=== PATIENT | male | born 1945 | race Caucasian/White ===

== ENCOUNTER 2018-01-26 00:10 | Emergency (ER) | payer MEDICARE, BC ==
[2018-01-26] MEDS ORDERED: NORMAL SALINE 1000 ML 1,000 ML IV ONE (00:53)
--- NOTE | 2018-01-26 00:55 | ER Document Report ---
ED General - General Chief Complaint: Nausea Stated Complaint: NAUSEA Time Seen by Provider: 01/26/18 00:44 Notes: Patient is a 72-year-old male that comes to the emergency department for chief complaint of weakness and nausea. He states he has been working outside for the past several days, he also had beer and then shots of alcohol over the past 24 hours, he states that he started to feel really weak and nauseated. He denies vomiting, chest pain, passing out. He denies fever or chills. Past medical history of hypertension, hyperlipidemia, dental surgery, denies any other medical history otherwise. Family at bedside. - Related Data Allergies/Adverse Reactions: No Known Allergies Allergy (Unverified 01/26/18 00:29) Past Medical History - General Information source: Patient - Social History Smoking Status: Never Smoker Frequency of alcohol use: Heavy Drug Abuse: None Lives with: Family Family History: Reviewed & Not Pertinent Patient has suicidal ideation: No Patient has homicidal ideation: No - Past Medical History Cardiac Medical History: Reports: Hx Hypertension Renal/ Medical History: Denies: Hx Peritoneal Dialysis Review of Systems - Review of Systems Constitutional: See HPI EENT: No symptoms reported Cardiovascular: See HPI Respiratory: No symptoms reported Gastrointestinal: See HPI Genitourinary: No symptoms reported Male Genitourinary: No symptoms reported Musculoskeletal: No symptoms reported Skin: No symptoms reported Hematologic/Lymphatic: No symptoms reported Neurological/Psychological: No symptoms reported Physical Exam - Vital signs Vitals: Temp Pulse Resp BP Pulse Ox 97.7 F 71 21 H 154/86 H 98 01/26/18 00:26 01/26/18 00:01/26/18 00:01/26/18 00:01/26/18 00:26 - Notes Notes: GENERAL: Patient slightly pale, slightly unwell appearing, no distress. HEAD: Normocephalic, atraumatic. EYES: Pupils equal, round, and reactive to light. Extraocular movements intact. ENT: Oral mucosa dry, oropharyngeal exam otherwise unremarkable. NECK: Full range of motion. Supple. Trachea midline. LUNGS: Clear to auscultation bilaterally, no wheezes, rales, or rhonchi. No respiratory distress. HEART: Regular rate and rhythm. No murmur ABDOMEN: Soft, non-tender. Non-distended. Bowel sounds present in all 4 quadrants. EXTREMITIES: Moves all 4 extremities spontaneously. No edema, normal radial and dorsalis pedis pulses bilaterally. No cyanosis. BACK: no cervical, thoracic, lumbar midline tenderness. No saddle anesthesia, normal distal neurovascular exam. NEUROLOGICAL: Alert and oriented x3. Normal speech. [cranial nerves II through XII grossly intact]. PSYCH: Normal affect, normal mood. SKIN:Pale and dry. Course - Re-evaluation Re-evalutation: Patient slightly pale and unwell appearing on initial evaluation, provided with IV fluids, provided with Carafate, Pepcid, Zofran. He is not tachycardic, he is alert and oriented, his examination is unremarkable otherwise. He is not hypotensive or febrile. CBC unremarkable, chemistry shows hyponatremia at 128, mild hypokalemia, CK is elevated in the 800s, workup otherwise unremarkable. Discussed with patient, on reevaluation he is sitting up, as normal color, states he feels excellent. No current symptoms. Discussed results, decision was made to cycle his chemistry and CK, this was performed, sodium improved slightly, CK is downtrending. Does not appear to be developing rhabdo. Patient requesting to leave. He states he has primary care follow-up and he will be able to see them within the next few days. Discussed return precautions , alcohol cessation, patient states understanding and agreement. He states that he does not get withdrawal symptoms, he states he has no difficulty with holding from alcohol and understands the importance of this. - Vital Signs Vital signs: Temp Pulse Resp BP Pulse Ox 97.9 F 71 18 136/86 H 99 01/26/18 05:03 01/26/18 00:26 01/26/18 05:03 01/26/18 05:03 01/26/18 05:03 - Laboratory Result Diagrams: 01/26/18 01:23 01/26/18 03:55 Laboratory results interpreted by me: 01/26/18 01/26/18 01/26/18 00:58 01:23 03:55 Sodium 128.7 L 130.1 L Potassium 3.4 L 3.1 L Chloride 89 L 96 L Calcium 8.3 L Total Bilirubin 1.5 H Direct Bilirubin 0.5 H Creatine Kinase 813 H 602 H Urine Ketones TRACE H Urine Ascorbic Acid 20 H Discharge - Discharge Clinical Impression: Nausea, Dehydration, Hyponatremia, Elevated CK Condition: Stable Disposition: HOME, SELF-CARE Additional Instructions: Continue rehydration at home, your sodium level is improved today, this will need to be rechecked. Your CK (muscle enzyme) is going down as it should but this also needs to be rechecked by your primary care. Your potassium was also slightly low, this can be increased by [id number] supplement or potassium rich foods. Follow-up within 1 week with your primary care for additional management. Avoid alcohol because this will lower your sodium. Return if you worsen in anyway including passing out, vomiting, chest pain, inability to urinate, or any other concerning symptoms. Prescriptions: Famotidine [Pepcid 20 mg Tablet] 20 mg PO BID #12 tablet
[2018-01-26 01:19] LABS: APPEARANCE,URINE CLEAR; BILIRUBIN,URINE NEGATIVE (NEGATIVE); COLOR,URINE YELLOW; GLUCOSE, URINE NEGATIVE (NEGATIVE); KETONES,URINE TRACE mg/dL (NEGATIVE); LEUKOCYTE ESTERASE,URINE NEGATIVE (NEGATIVE); NITRITE,URINE NEGATIVE (NEGATIVE); PROTEIN,URINE NEGATIVE (NEGATIVE); URINE SPECIFIC GRAVITY 1.009; UROBILINOGEN,URINE NEGATIVE mg/dL (<2.0)
[2018-01-26] MEDS ORDERED: ONDANSETRON 4 MG TAB.RAPDIS PO ONE (01:25)
[2018-01-26] MEDS ORDERED: SUCRALFATE 1 GM TABLET PO ONE (01:25)
[2018-01-26] MEDS ORDERED: FAMOTIDINE 20 MG TABLET PO ONE (01:25)
[2018-01-26 01:39] LABS: ABSOLUTE BASOPHILS # (AUTO) 0.1 10^3/uL (0.0-0.2); ABSOLUTE EOSINOPHILS # (AUTO) 0.2 10^3/uL (0.0-0.6); ABSOLUTE LYMPHOCYTES (AUTO) 2.9 10^3/uL (0.5-4.7); ABSOLUTE NEUT (AUTO) 3.9 10^3/uL (1.7-8.2); BASOPHILS % (AUTO) 0.7 % (0-2); HEMATOCRIT 43.9 % (37.9-51.0); HEMOGLOBIN 15.2 g/dL (13.5-17.0); LYMPHOCYTES % (AUTO) 36.3 % (13-45); MEAN CORPUSCULAR HGB CONC 34.5 g/dL (32.0-36.0); MEAN CORPUSCULAR VOLUME 93 fl (80-97); MONOCYTES % (AUTO) 12.3 % (3-13); PLATELET COUNT 294 10^3/uL (150-450); RED BLOOD COUNT 4.75 10^6/uL (4.35-5.55); RED CELL DISTRIBUTION WIDTH 13.4 % (11.5-14.0); SEGMENTED NEUTROPHILS % (AUTO) 48.7 % (42-78); TOTAL CELLS COUNTED % (AUTO) 100 %; WHITE BLOOD COUNT 7.9 10^3/uL (4.0-10.5)
[2018-01-26 02:14] LABS: ALANINE AMINOTRANSFERASE 40 U/L (21-72); ALKALINE PHOSPHATASE 94 U/L (38-126); ANION GAP 13 (5-19); ASPARTATE AMINO TRANSFERASE 53 U/L (17-59); BILIRUBIN,DIRECT 0.5 mg/dL (0.0-0.4); BILIRUBIN,TOTAL 1.5 mg/dL (0.2-1.3); BLOOD UREA NITROGEN 10 mg/dL (7-20); CALCIUM 9.2 mg/dL (8.4-10.2); CARBON DIOXIDE 27 mmol/L (22-30); CHLORIDE 89 mmol/L (98-107); CREATINE KINASE 813 U/L (55-170); GLUCOSE 106 mg/dL (75-110); LIPASE 76.6 U/L (23-300); POTASSIUM 3.4 mmol/L (3.6-5.0); SODIUM 128.7 mmol/L (137-145); TOTAL PROTEIN 7.1 g/dL (6.3-8.2)
[2018-01-26 02:20] LABS: ALCOHOL < 10 mg/dL (NONE DETECTED)
[2018-01-26] MEDS ORDERED: NORMAL SALINE 1000 ML 500 ML IV ONE (02:38)
[2018-01-26 04:19] LABS: ANION GAP 7 (5-19); BLOOD UREA NITROGEN 8 mg/dL (7-20); CALCIUM 8.3 mg/dL (8.4-10.2); CARBON DIOXIDE 27 mmol/L (22-30); CHLORIDE 96 mmol/L (98-107); CREATINE KINASE 602 U/L (55-170); GLUCOSE 108 mg/dL (75-110); POTASSIUM 3.1 mmol/L (3.6-5.0); SODIUM 130.1 mmol/L (137-145)
[2018-01-26] MEDS ORDERED: ONDANSETRON ODT 4 MG TAB (6 TAB/ER DISP) PO PRN (04:40)
[2018-01-26 05:08] VITALS: BP 136/86
--- NOTE | 2018-01-26 12:38 | EKG REPORT ---
SEVERITY:- ABNORMAL ECG - SINUS RHYTHM LAD, CONSIDER LEFT ANTERIOR FASCICULAR BLOCK : Confirmed by: Edyta Dumont MD 26-Jan-2018 12:37:44
== END 2018-01-26 05:08 | disposition home or self-care (01) ==
LOC: EDBD → ER 00:10
DX: R11.0 Nausea (principal); E87.1 Hypo-osmolality and hyponatremia; E87.6 Hypokalemia; E86.0 Dehydration; R74.8 Abnormal levels of other serum enzymes; R53.1 Weakness; R23.1 Pallor; I10 Essential (primary) hypertension
CPT/HCPCS: 93005; 99284; 96360; 96361; 36415; 80307; 82550; 83690; 85025; 80048; 80053; 81001; 84484; 93010; A9270 ×4; S0119